=== PATIENT | female | born 1995 | race Caucasian/White ===

== ENCOUNTER 2022-05-23 19:06 | Emergency (ER) | payer MEDICAID ==
[~2022-05-23] VITALS: Ht 167.6 cm; Wt 75.0 kg
[~2022-05-23 19:06] MED LIST: ACET-2708 MT; DOXY100T28 MT
[2022-05-24 02:15] VITALS: BP 117/74
[2022-05-24] MEDS ORDERED: D-ME473S50 PO (04:02)
[2022-05-24] MEDS ORDERED: AMOX1TAB16 MT (04:02)
== END 2022-05-24 04:40 | disposition home or self-care (01) ==
LOC: ER 19:06
DX: J18.9 Pneumonia, unspecified organism (principal); Z98.890 Other specified postprocedural states
CPT/HCPCS: 99283

== ENCOUNTER 2022-06-14 19:50 | Emergency (ER) | payer MEDICAID ==
[~2022-06-14] VITALS: Ht 154.9 cm; Wt 62.0 kg
[~2022-06-14 19:50] MED LIST changes: +AMOX1TAB16 MT; +D-ME473S50 PO
[2022-06-14 20:02] VITALS: BP 116/81
== END 2022-06-15 02:00 | disposition left against medical advice (07) ==
LOC: ER 19:50
DX: Z53.21 Procedure and treatment not carried out due to patient leaving prior to being seen by health care provider (principal)

== ENCOUNTER 2022-11-14 13:24 | Emergency (ER) | payer MEDICAID ==
[~2022-11-14] VITALS: Ht 157.5 cm; Wt 64.0 kg
[2022-11-14 13:58] LABS: BASOPHILS % 0.3 % (0.0-2.0); EOSINOPHILS % 0.6 % (0.0-5.0); HEMOGLOBIN. 13.8 g/dL (12.0-16.0); LYMPHOCYTES % 13.1 % (20.0-50.0); MEAN CORPUSCULAR HEMOGLOBIN 30.9 pg (28.0-32.0); MEAN CORPUSCULAR VOLUME 89.4 fL (81.0-99.0); MEAN PLATELET VOLUME 9.9 fl (7.4-10.4); MONOCYTES % 6.8 % (2.0-8.0); NEUTROPHILS % 79.2 % (40.0-76.0); PLATELET 207 x1000/uL (130-400); RED BLOOD CELL COUNT 4.47 mill/uL (4.2-5.4); RED CELL DISTRIBUTION WIDTH 13.7 % (11.6-14.6)
[2022-11-14 13:59] LABS: CHLORIDE 106 mEq/L (98-107)
[2022-11-14 15:23] LABS: CLARITY URINE CLOUDY (CLEAR); COLOR URINE YELLOW (YELLOW); KETONES URINE 1+ (NEGATIVE); LEUKOCYTE ESTERASE URINE 1+ (NEGATIVE); NITRITE URINE NEGATIVE (NEGATIVE); OCCULT BLOOD URINE NEGATIVE (NEGATIVE); PH URINE 6.5 (4.5-8.0); PROTEIN URINE TRACE (NEGATIVE); SPECIFIC GRAVITY URINE 1.029 (1.005-1.030)
[2022-11-14 15:56] LABS: INR 1.1; PROTHROMBIN TIME 11.5 sec (9.6-11.0)
[2022-11-14 16:00] LABS: CHLORIDE 106 mEq/L (98-107)
[2022-11-14] MEDS ORDERED: NITR-87 MT (16:40)
[2022-11-14] MEDS ORDERED: IBUP-1523 MT (16:40)
[2022-11-14] MEDS ORDERED: ACET-2708 MT (16:40)
[2022-11-14 17:06] VITALS: BP 124/87
== END 2022-11-14 17:06 | disposition home or self-care (01) ==
LOC: ER 13:24
DX: R10.31 Right lower quadrant pain (principal)
CPT/HCPCS: 36415; 74176; 80053; 81003; 81025; 85025; 99284

== ENCOUNTER 2022-11-15 19:04 | Emergency (ER) | payer MEDICAID ==
[~2022-11-15] VITALS: Ht 157.5 cm; Wt 64.0 kg
[~2022-11-15 19:04] MED LIST changes: +IBUP-1523 MT; +NITR-87 MT
[2022-11-15 19:09] VITALS: BP 129/80
== END 2022-11-15 23:45 | disposition left against medical advice (07) ==
LOC: ER 19:04
DX: M25.511 Pain in right shoulder (principal)
CPT/HCPCS: 99281